=== PATIENT | male | born 1980 | race Caucasian/White ===

== ENCOUNTER 2021-01-14 10:57 | Emergency (ER) | payer OTHER, SELFPAY ==
--- NOTE | ~2021-01-14 | XR_ITS ---
EXAMINATION: XR knee LT min 4V DATE: 01/14/2021 11:37 INDICATION: Left knee hyperextension injury TECHNIQUE: Anteroposterior, 2 oblique and crosstable lateral views of the left knee were obtained COMPARISON: None. FINDINGS: Alignment is normal. No fracture. No joint effusion/layering lipohemarthrosis. Small enthesophyte at the proximal pole of the patella. Soft tissues are unremarkable. IMPRESSION: 1. No left knee joint effusion or acute osseous abnormality. Reviewed, dictated and finalized at location A.
[2021-01-14 11:12] VITALS: BP 140/82; PULSE 84; RESP 18; TEMP 36.8; O2SAT 99
--- NOTE | 2021-01-14 11:28 | ED.LOWEXIN ---
HPI - Extremity Injury (Lower) General Chief Complaint: Extremity Injury, Lower Stated Complaint: left knee injury Time Seen by Provider: 01/14/21 11:13 Source: patient Mode of arrival: ambulatory Limitations: no limitations History of Present Illness HPI Narrative: This is a 40-year-old male that presents to the emergency department for left knee injury yesterday. Reports he was playing football and twisted his left knee. Since he has had pain with range of motion and weightbearing. The pain is mostly on the inside of his knee. Denies edema, decreased range of motion or numbness. Related Data Home Medications Medication Instructions Recorded Confirmed No Home Medications 01/14/21 01/14/21 Allergies Allergy/AdvReac Type Severity Reaction Status Date / Time nickel Allergy Rash Verified 01/14/21 11:11 Review of Systems Review of Systems: CONSTITUTIONAL: Denies fever MUSCULOSKELETAL: Reports joint pain, and myalgia. NEUROLOGIC: Denies numbness All systems reviewed & are unremarkable except as noted in HPI and below PMFSH Past Medical History Medical History (Updated 01/14/21 @ 13:03 by Yesi Devi PA-C) No active medical problems Social History Social History (Updated 01/14/21 @ 11:30 by Yesi Devi PA-C) Smoking status: Current every day smoker Exam Narrative: GENERAL: Well-appearing, well-nourished, and in no acute distress. HEAD: Normocephalic, atraumatic. EYES: EOMI. EXTREMITIES: Normal range of motion. No edema or obvious deformity. Pain with active range of motion in the left knee. Tender to palpation of the medial joint line. Normal DP pulses. Normal sensation SKIN: Warm, dry, no rash. NEURO: No focal deficits. Alert and oriented x3. PSYCH: Normal mood and affect Course Vital Signs Vital signs: Vital Signs Temperature 98.3 F 01/14/21 11:12 Pulse Rate 84 01/14/21 11:12 Respiratory Rate 18 01/14/21 11:12 Blood Pressure 140/82 01/14/21 11:12 Pulse Oximetry 99 01/14/21 11:12 Temperature 98.3 F 01/14/21 11:12 Pulse Rate 84 01/14/21 11:12 Respiratory Rate 18 01/14/21 11:12 Blood Pressure 140/82 01/14/21 11:12 Pulse Oximetry 99 01/14/21 11:12 Procedures Orthopedic Splinting/Casting Injury #1: Splinting/Casting Date: 01/14/21 Splinting/Casting Time: 13:01 Side: left Lower Extremity Injury Location: knee Lower Extremity Immobilizer: knee immobilizer Splint: prefabricated Pre-Formed: knee immobilizer Pre-Procedure Neuro Vascular Exam: normal Post-Procedure Neuro Vascular Exam: normal Other Orthopedic Equipment: crutches MDM - Extremity Injury (Lower) MDM Narrative Medical decision making narrative: Patient presents emergency department for left knee pain after an injury yesterday. Left knee x-rays without acute osseous abnormalities. Placed in a knee immobilizer and given crutches. Patient was instructed on care of the sprain. He is to follow-up with orthopedics. He was given warnings to return to the ER Imaging Data Radiologist's impression: ITS Impressions Knee X-Ray 01/14/21 11:43 IMPRESSION: 1. No left knee joint effusion or acute osseous abnormality. Critical Care Time Critical Care Time Critical Care Time: No Discharge Plan Discharge Clinical Impression: Acute internal derangement of knee Qualifiers: Laterality: left Qualified Code(s): M23.92 - Unspecified internal derangement of left knee Patient Disposition: Home, Self-Care Condition: Stable Instructions: Knee Sprain (ED) Additional Instructions: Return to the emergency department if you experience fever, redness and swelling of your leg, numbness, or any other symptoms that are concerning to you Wear knee immobilizer and use crutches. No weight on the affected leg. Ice and elevate extremity. Pain medication as needed and directed. Follow up with orthopedics for further car
[2021-01-14 13:32] VITALS: BP 136/80; PULSE 82; RESP 16; O2SAT 100
== END 2021-01-14 13:32 | disposition home or self-care (01) ==
PROVIDERS: Emergency Provider Emergency Medicine; PCP Family Medicine
DX: S83.92XA Sprain of unspecified site of left knee, initial encounter (principal); M23.92 Unspecified internal derangement of left knee; X50.9XXA Other and unspecified overexertion or strenuous movements or postures, initial encounter; Y93.61 Activity, american tackle football
CPT/HCPCS: 73564; 99283